=== PATIENT | male | born 1945 | race Caucasian/White ===

== ENCOUNTER → 2017-02-16 | Day surgery (SDC) | payer MEDICARE, OTHER ==
[~2017-02-16] MED LIST: AGGR20025 PO; AMBI10TA PO; AMIT150T PO; ARIC10TA PO; ARIC10TA2 PO; ASPI-110 PO; ASPI-156 PO; ASPI1TAB69 PO; AZEL1SPR2 EACH NARE; BUPIVACAINE HCL PF 0.5% 30 ML VIAL ONE; BUPR150XL PO; CYMB60CA PO; DIAZ5 PO; ENDO10TA8 PO; ESZO3TAB4 PO; FENT100D T-DERMAL; FLUR30CA12; GABA600T PO; ISOS20TA PO; LEVE250 PO; LEXA20TA PO; LYRI50CA PO; MIRA50TA PO; MIRT45TA PO; MOBI7.5T PO; MULT1TAB85 PO; MULTTAB67 PO; NAME10TA PO; NIAC500 PO; NITRSPR6; OMEP20TA PO; PLAV75TA29 PO; POTA-243 PO; PRIL20CA9 PO; PROPOFOL 200 MG/20 ML AMP IV ONE; ROPI1TAB72 PO; TIGA300C2 PO; TOPR50TA PO; TRIAMCINOLONE ACETONIDE 40 MG/ML VIAL I-ARTICULR ONE; TYLETAB34 PO; VITA500T49 PO; ZOCO40TA PO
--- NOTE | 2017-02-16 23:09 | M6 ---
cc: NORY BARRERA M.D. DATE 02/16/17 1945 PROCEDURE Fluoroscopically guided injection bilateral cervical facet joints (bilateral C3-4, C4-5 at C5-6 facet joints). History and physical was completed and signed. Consent was signed. Procedure site was marked. Medications were listed and reconciled. Pain score was recorded. Allergies were noted. Time out was taken. Fluoroscopy time was recorded where applicable. Sedation was administered or directed by Dr. Barrera. The patient was given oxygen. The patient was monitored by a registered nurse. Total procedure time was greater than 15 minutes. IV was started, blood pressure cuff, pulse oximeter and EKG were applied. The patient was placed in the prone position on a Srinivasa table sedated with small amounts of propofol titrated to effect. Vital signs were monitored and remained stable throughout the procedure. The skin was prepped with alcohol and Betadine. Fluoroscopy was used to visualize the bilateral cervical facet joints at C3-4, C4-5 and C5-6. Separate sterile 3-1/2-inch 25-gauge spinal needles were advanced into these joints under fluoroscopic guidance. There was negative aspiration for blood or any other type of fluid. At each location, the patient was given 1 mL of Marcaine 0.5% which contained 10 mg of Kenalog. Following the procedure, the patient was taken to the recovery room with stable vital signs neurologically intact. He will be evaluated immediately and with followup to determine if he has a subjective decrease in his usual pain and a corresponding objective increase in his functional capability. W. MD RAFFY Virgen/ /10:17 AM /11:04 PM
== END | disposition home or self-care (01) ==
LOC: PHSDC 07:38
PROVIDERS: ATTEND Pain Medicine Interventional Pain Medicine
DX: M54.2 Cervicalgia (principal)
CPT/HCPCS: 64490; 64491; 64492; 99152; J3301

== ENCOUNTER → 2017-03-23 | Day surgery (SDC) | payer MEDICARE, OTHER ==
[~2017-03-23] MED LIST changes: -ARIC10TA PO; -ASPI-156 PO; -ASPI1TAB69 PO; -AZEL1SPR2 EACH NARE; -BUPIVACAINE HCL PF 0.5% 30 ML VIAL ONE; +BUPIVACAINE HCL PF 0.75% 30 ML VIAL ONE; -DIAZ5 PO; -ESZO3TAB4 PO; -FENT100D T-DERMAL; -FLUR30CA12; -LYRI50CA PO; -MULT1TAB85 PO; -PLAV75TA29 PO; -PRIL20CA9 PO; -ROPI1TAB72 PO; -TYLETAB34 PO; -VITA500T49 PO
--- NOTE | 2017-03-29 12:32 | M6 ---
cc: Ernesto BARRERA DATE 03/23/2017 DATE OF 1945 PROCEDURE Fluoroscopically guided injection bilateral lumbar facet joints (bilateral L3-4, L4-5 and L5-S1 facet joints). PROCEDURE NOTE History and physical was completed and signed. Consent was signed. Procedure site was marked. Medications were listed and reconciled. Pain score was recorded. Allergies were noted. Time out was taken. Fluoroscopy time was recorded where applicable. Sedation was administered or directed by Dr. Barrera. The patient was given oxygen. The patient was monitored by a registered nurse. Total procedure time was greater than 15 minutes. IV was started, blood pressure cuff, pulse oximeter and EKG were applied. The patient was placed in the prone position on a Srinivasa table, sedated with small amounts of propofol titrated to effect. Vital signs were monitored and remained stable throughout the procedure. The lumbar area was prepped with alcohol and 10% Betadine solution and draped with sterile drapes. Fluoroscopy was used in a Peña dog view to clearly visualize the bilateral lumbar facet joints at L3-4, L4-5 and L5-S1. Separate sterile 3-1/2-inch 25-gauge spinal needles were advanced into these joints under fluoroscopic guidance. There was negative aspiration for blood or any other type of fluid and at each location the patient was given 1 mL of Marcaine 0.75% which contained 10 mg of Kenalog. Following the procedure, the patient was taken to the recovery room with stable vital signs neurologically intact. He will be evaluated immediately and with followup to determine if he has a subjective decrease in his usual pain and a corresponding objective increase his functional capabilities. MD RAFFY Donis/PORTER /11:34 AM /12:32 PM
== END | disposition home or self-care (01) ==
LOC: PHSDC 07:31
PROVIDERS: ATTEND Pain Medicine Interventional Pain Medicine
DX: M54.16 Radiculopathy, lumbar region (principal); I10 Essential (primary) hypertension; M54.5 Low back pain; G62.9 Polyneuropathy, unspecified; F32.9 Major depressive disorder, single episode, unspecified; F03.90 Unspecified dementia, unspecified severity, without behavioral disturbance, psychotic disturbance, mood disturbance, and anxiety; K21.9 Gastro-esophageal reflux disease without esophagitis
CPT/HCPCS: 64493; 64494; 64495; 99152; J3301

== ENCOUNTER → 2017-05-03 | Day surgery (SDC) | payer MEDICARE, OTHER ==
[~2017-05-03] MED LIST changes: -AMBI10TA PO; -ARIC10TA2 PO; -BUPIVACAINE HCL PF 0.75% 30 ML VIAL ONE; -LEXA20TA PO; +LIDOCAINE HCL 1% PF 30 ML VIAL INFIL ONE; +MEPERIDINE HCL 25 MG/ML VIAL IV ONE; +MIDAZOLAM HCL 2 MG/2 ML VIAL IV ONE; -POTA-243 PO; +SODIUM CHLORIDE 0.9% 10 ML VIAL ONE; -TIGA300C2 PO; -TRIAMCINOLONE ACETONIDE 40 MG/ML VIAL I-ARTICULR ONE; +methylPREDNISolone ACETATE 40 MG/ML VIAL I-ARTICULR ONE
--- NOTE | 2017-05-06 17:38 | M6 ---
cc: NORY BARRERA M.D. DATE: 05/03/2017. DATE OF : 1945 PROCEDURE PERFORMED: Radiofrequency rhizotomy multiple bilateral cervical facet joints (bilateral C3-4, C4-5 and C5-6 facet joints). DESCRIPTION OF THE PROCEDURE IN DETAIL: History and physical was completed and signed. Consent was signed. Procedure site was marked. Medications were listed and reconciled. Pain score was recorded. Allergies were noted. Time out was taken. Fluoroscopy time was recorded where applicable. Sedation was administered or directed by Dr. Barrera. The patient was given oxygen. The patient was monitored by a registered nurse. Total procedure time was greater than 15 minutes. IV was started, blood pressure cuff, pulse oximeter and EKG were applied. The patient was placed in the prone position and on a Srinivasa table and sedated with small amounts of Versed and propofol titrated to effect. Vital signs were monitored and remained stable throughout the procedure. The cervical area was prepped with alcohol and 10% Betadine solution and draped with sterile drapes. Fluoroscopy was used to visualize the target areas which were the "waist" between the bilateral cervical facet joints at C3-4, C4-5 and C5-6. Separate sterile 3-1/2-inch 22 gauge radiofrequency needles with a 10 mm tip were advanced to the above-mentioned target areas. Fluoroscopy was used to confirm the needle was not near the nerve root. Once properly positioned, thermal lesions took place at 80 degrees centigrade x90 seconds. This was followed by injection of a small amount of Depo-Medrol at each location for a total of 80 mg of Depo-Medrol. Following the procedure, the patient was taken to the recovery room with stable vital signs neurologically intact. He will be evaluated immediately and with followup to determine if he has a subjective decrease in his usual pain and a corresponding objective increase his functional capabilities. W. MD RAFFY Virgen/DONTRELL /10:47 AM /5:39 PM
== END | disposition home or self-care (01) ==
LOC: PHSDC 08:40
PROVIDERS: ATTEND Pain Medicine Interventional Pain Medicine
DX: M54.2 Cervicalgia (principal)
CPT/HCPCS: 64633; 64634; 99152; 99153; J1030; J2175; J2250